=== PATIENT | female | born 1960 | race Caucasian/White ===

== ENCOUNTER → 2017-12-01 08:43 | Outpatient (CLI) | payer BC, SELFPAY ==
--- NOTE | 2017-12-01 08:48 | MM_ITS ---
MM Dig screening mamm BI w/CAD CAD Screening COMPARISON: Digital mammograms 11/10/2016 and 11/21/2015 from [place], [place]. INDICATION: There is no personal or family history of breast cancer TECHNIQUE: Standard CC and MLO images were obtained. R2 CAD reviewed. FINDINGS: Moderate diffuse fiber glandular densities are seen in central portions of both breast. There are few benign-appearing calcination is in each breast. There is no suspicious lesion and there are no suspicious microcalcifications. IMPRESSION: Fibrofatty parenchyma no suspicious lesion seen BI-RADS Category: 2 Benign Finding(s) RECOMMENDED FOLLOW-UP: 1YR - 1 YEAR FOLLOW-UP (A letter has been sent to the patient regarding results of the study.)
== END ==
PROVIDERS: PCP Family Medicine; Visit Provider Family Medicine
DX: Z12.31 Encounter for screening mammogram for malignant neoplasm of breast (principal)
CPT/HCPCS: 77067

== ENCOUNTER → 2019-02-10 09:15 | Outpatient (CLI) | payer BC, SELFPAY ==
--- NOTE | 2019-02-10 09:18 | MM_ITS ---
MM Dig screening mamm BI w/CAD CAD Screening INDICATION: Screening for breast cancer ORDERING PHYSICIAN: Scott Gunn PATIENT AGE: 58 years COMPARISON: None TECHNIQUE: Standard CC and MLO images were obtained. R2 CAD reviewed. FINDINGS: There is dense fibroglandular tissue. This does decrease the sensitivity of mammography. Scattered areas of asymmetry once again noted not significantly changed. Benign-appearing calcifications are present. IMPRESSION: None findings, no evidence of malignancy with no significant change BI-RADS Category: 2 Benign Finding(s) RECOMMENDED FOLLOW-UP: 1YR - 1 YEAR FOLLOW-UP (A letter has been sent to the patient regarding results of the study.)
== END ==
PROVIDERS: PCP Family Medicine; Visit Provider Family Medicine
DX: Z12.31 Encounter for screening mammogram for malignant neoplasm of breast (principal)
CPT/HCPCS: 77067

== ENCOUNTER → 2020-02-12 08:56 | Outpatient (CLI) | payer BC, SELFPAY ==
--- NOTE | 2020-02-12 08:58 | MM_ITS ---
PROCEDURE: MM DIG SCREENING MAMM BI W/CAD Digital Breast Tomosynthesis Included CLINICAL INDICATION: SCREENING There is no personal or family history of breast cancer. The patient currently is on estrogen. COMPARISON: MG MY Digital Screen BILAT from 11/10/2016 MG [facility] MM Dig screening mamm BI w/CAD from 12/01/2017 MG DIG MAMM-SCREEN CHIDI from 02/10/2019 TECHNIQUE: Standard CC and MLO images and 3D Tomosynthesis was obtained. R2 CAD reviewed. FINDINGS: Moderate diffuse fibroglandular densities are seen in the central portions of both breasts. There are few scattered benign-appearing microcalcifications in each breast. There is a possible developing asymmetric slightly suspicious density outer quadrant left breast. It is best appreciated on the CC jeaneth views. This could represent asymmetric glandular elements however recommend the patient return for spot compression MLO and CC views and ultrasound for additional evaluation. IMPRESSION: Moderate somewhat heterogenic breast density with possible developing lesion left breast BI-RAD Category: 0 Need Additional Imaging Evaluation FOLLOW-UP: IMM Immediate Follow-up Recommended (A letter has been sent to the patient regarding results of the study.) Dictated Dr. Kenton Ba MD 02/16/2020 10:04 Dr. Kenton Wilhelm MD in [place] 02/16/2020 10:04
== END ==
PROVIDERS: PCP Family Medicine; Visit Provider Family Medicine
DX: Z12.31 Encounter for screening mammogram for malignant neoplasm of breast (principal)
CPT/HCPCS: 77063; 77067

== ENCOUNTER → 2020-03-14 14:29 | Outpatient (CLI) | payer BC, SELFPAY ==
--- NOTE | 2020-03-14 14:31 | US_ITS ---
PROCEDURE: US BREAST LT COMPLETE CLINICAL INDICATION: ABN MAMM COMPARISON: No exams were available for comparison FINDINGS: Survey ultrasound images of the entire breast were obtained. There is no suspicious cystic or solid mass or evidence of architectural distortion in the area of interest seen on the previous and current mammogram. There is somewhat diffuse heterogenic echogenicity consistent with heterogenic appearing parenchymal pattern on the recent mammogram. There couple normal appearing nodes in the axilla IMPRESSION: Unremarkable ultrasound left breast Dictated by: Dr. Kenton Wilhelm MD 03/15/2020 13:19 Dr. Kenton Wilhelm MD in [place] 03/15/2020 13:19
--- NOTE | 2020-03-14 14:31 | MM_ITS ---
PROCEDURE: MM DIG MAMM DX UNILAT LT CAD Digital Breast Tomosynthesis Included CLINICAL INDICATION: ABN MAMM COMPARISON: MG [facility] MM Dig screening mamm BI w/CAD from 12/01/2017 MG DIG MAMM-SCREEN CHIDI from 02/10/2019 MG MM DIG SCREENING MAMM BI W/CAD from 02/12/2020 US US BREAST LT COMPLETE from 03/14/2020 TECHNIQUE: Standard CC and MLO images and 3D Tomosynthesis was obtained. R2 CAD reviewed. Spot compression MLO and CC views were obtained as well as 90 degree lateral view FINDINGS: The possible developing asymmetric density left breast appears to press out on the spot compression views. Ultrasound exam performed same date showed no abnormality at this location. There are no suspicious microcalcifications. IMPRESSION: Negative problem solving views, no persistent suspicious abnormality seen BI-RAD Category: 1 Negative FOLLOW-UP: 1YR 1 Year Follow-up (A letter has been sent to the patient regarding results of the study.) Dictated by: Dr. Kenton Wilhelm MD 03/15/2020 13:15 Dr. Kenton Wilhelm MD in [place] 03/15/2020 13:15
== END ==
PROVIDERS: PCP Family Medicine; Visit Provider Internal Medicine Adolescent Medicine
DX: R92.8 Other abnormal and inconclusive findings on diagnostic imaging of breast (principal)
CPT/HCPCS: 76641; 77061; 77065; G0279

== ENCOUNTER → 2020-11-12 09:24 | Outpatient (CLI) | payer BC, SELFPAY ==
[2020-11-12 09:57] LABS: Basophils # 0.1 K/mm3 (0-0.2); Basophils % 0.9 % (0.1-2.0); Eosinophils # 0.1 K/mm3 (0.0-0.4); Eosinophils % 2.4 % (0.1-12.0); Hemoglobin 13.3 g/dL (12.2-16.2); Lymphocytes # 1.8 K/mm3 (0.7-4.5); Lymphocytes % 35.5 % (10-50); Mean Corpuscular HGB Conc 34.2 g/dL (31.8-35.4); Mean Corpuscular Hemoglobin 28.7 pg (27.0-31.2); Mean Platelet Volume 7.7 fl (7.4-10.4); Monocytes # 0.3 K/mm3 (0.1-1.0); Monocytes % 4.9 % (1.7-9.3); Neutrophils # 2.8 K/mm3 (1.8-7.8); Neutrophils % 56.3 % (37.0-80.0); Platelet Count 304 K/mm3 (142-424); Red Blood Count 4.64 M/mm3 (4.20-5.40); Red Cell Distribution Width 13.3 % (11.5-17.5)
[2020-11-12 10:08] LABS: Hemoglobin A1C 5.7 % (4.0-6.0)
[2020-11-12 10:44] LABS: Alanine Aminotransferase 28 U/L (12-78); Albumin Level 4.9 g/dl (3.5-5.0); Albumin/Globulin Ratio 1.7 (1.1-1.8); Alkaline Phosphatase 82 U/L (38-126); Anion Gap 12.6 mEq/L (5-15); Aspartate Amino Transferase 37 U/L (14-36); Bilirubin,Total 0.6 mg/dl (0.2-1.3); Blood Urea Nitrogen 15 mg/dl (7-17); Calcium 10.2 mg/dl (8.4-10.2); Carbon Dioxide 25 mmol/L (22.0-30.0); Chloride 102 mmol/L (98-107); Cholesterol 228 mg/dl (140-200); Estimated Glomerular Filt Rate 73 ml/min (>60); GFR (African American) 88 ML/MIN (>60); Globulin 2.9 g/dL (1.3-3.2); Glucose 110 mg/dl (74-100); Potassium 5.6 mmoL/L (3.5-5.1); Sodium 134 mmol/L (136-145); Total Protein,Serum 7.8 g/dl (6.3-8.2); Triglycerides 63 mg/dl (30-150); VLDL Cholesterol 13 mg/dL (0-40)
[2020-11-12 10:53] LABS: Chol/HDL Ratio 1.9 (1-3.5); HDL Cholesterol 119 mg/dl (40-60)
[2020-11-12 10:54] LABS: Direct LDL Cholesterol 89.15 mg/dL (100-129)
== END ==
PROVIDERS: Visit Provider Nurse Practitioner Family
DX: Z00.00 Encounter for general adult medical examination without abnormal findings (principal); I10 Essential (primary) hypertension; R73.9 Hyperglycemia, unspecified
CPT/HCPCS: 36415; 80053; 80061; 83036; 85025

== ENCOUNTER → 2022-01-13 09:20 | Outpatient (CLI) | payer BC, SELFPAY ==
--- NOTE | 2022-01-13 09:24 | MM_ITS ---
PROCEDURE INFORMATION: Exam: MG Bilateral Screening 3D Mammography Exam date and time: 01/13/2022 9:36 AM Age: 61 years old Clinical indication: Screening mammogram TECHNIQUE: Imaging protocol: Bilateral Screening tomosynthesis and 2D mammography including computer-aided detection (CAD) when performed. COMPARISON: 1. MG MM DIG MAMM DX UNILAT LT CAD 03/14/2020 2:30 PM 2. MG MM DIG SCREENING MAMM BI W/CAD 02/12/2020 9:03 AM 3. MG MM DIG SCREENING MAMM BI W/CAD 02/10/2019 9:33 AM 4. MG [facility] MM Dig screening mamm BI w/CAD 12/01/2017 9:11 AM FINDINGS: MAMMOGRAPHY: Breast composition: The breast is heterogeneously dense, which may obscure small masses. Mass: None. Architectural distortion: No new or suspicious architectural distortion. Calcifications: Stable benign-appearing calcifications are present. No new or suspicious cluster of microcalcifications have developed. Asymmetric density: No new or suspicious asymmetric density is present Skin thickening: None. Axillary adenopathy: None. IMPRESSION: No mammographic evidence of malignancy. Recommend annual screening mammography unless otherwise clinically indicated. ASSESSMENT: BI-RADS category 2: Benign
--- NOTE | 2022-01-13 09:25 | XR_ITS ---
FINAL REPORT TECHNIQUE: Bone densitometry calculations of the lumbar spine and left hip were obtained. CLINICAL HISTORY: .screening, prior on pacs FINDINGS: DEXA BONE DENSITY AXIAL SKELETON Using L1-4, the bone mineral density of the spine is 0.969 g/cm2, corresponding to T-score of -0.7. Using the left hip, the bone mineral density of the femoral neck is 0.871 g/cm2, corresponding to a T-score of -0.6. NOTE: T-score: Standard deviation compared with peak bone mass of young adult mean. *Following the recommendations of the International Society of Bone densitometry, classification of hip BMD is based on the lower of two T-scores; total hip or femoral neck. IMPRESSION: Normal bone mineral density of the lumbar spine and left hip. Reviewed, Interpreted and Dictated by Karri Zimmer III, MD Transcribed by Pricilla Higgins Authenticated and [facility]
== END ==
PROVIDERS: PCP Family Medicine; Visit Provider Nurse Practitioner Family
DX: Z12.31 Encounter for screening mammogram for malignant neoplasm of breast (principal); Z78.0 Asymptomatic menopausal state
CPT/HCPCS: 77063; 77067; 77080

== ENCOUNTER 2023-09-07 08:12 | Outpatient (CLI) | payer MEDICARE, SELFPAY ==
--- NOTE | 2023-09-07 08:26 | MM_ITS ---
PROCEDURE INFORMATION: Exam: MG Bilateral Screening 3D Mammography Exam date and time: 09/07/2023 8:28 AM Age: 63 years old Clinical indication: Screening mammogram TECHNIQUE: Imaging protocol: Bilateral Screening tomosynthesis and 2D mammography including computer-aided detection (CAD) when performed. COMPARISON: 1. MG MM DIG SCREENING MAMM BI W/CAD 01/13/2022 9:36 AM 2. MG MM DIG MAMM DX UNILAT LT CAD 03/14/2020 2:30 PM 3. MG MM DIG SCREENING MAMM BI W/CAD 02/12/2020 9:03 AM 4. MG MM DIG SCREENING MAMM BI W/CAD 02/10/2019 9:33 AM FINDINGS: MAMMOGRAPHY: Breast composition: The breast is heterogeneously dense, which may obscure small masses. Mass: None. Architectural distortion: No new or suspicious architectural distortion. Calcifications: No new or suspicious calcifications are present Asymmetric density: No new or suspicious asymmetric density is present Skin thickening: None. Axillary adenopathy: None. IMPRESSION: No mammographic evidence of malignancy. Recommend annual screening mammography unless otherwise clinically indicated. ASSESSMENT: BI-RADS category 1: Negative
== END 2023-09-07 23:59 ==
LOC: RAD 08:12
PROVIDERS: PCP Nurse Practitioner Family; Visit Provider Nurse Practitioner Family
DX: Z12.31 Encounter for screening mammogram for malignant neoplasm of breast (principal)
CPT/HCPCS: 77063; 77067

== ENCOUNTER 2023-12-21 08:43 | Outpatient (CLI) | payer MEDICARE, SELFPAY ==
[2023-12-21 09:28] LABS: Basophils # 0.1 K/mm3 (0-0.2); Basophils % 1.1 % (0.1-2.0); Eosinophils # 0.1 K/mm3 (0.0-0.4); Eosinophils % 1.5 % (0.1-12.0); Hematocrit 40.2 % (37.0-47.0); Hemoglobin 13.6 g/dL (12.2-16.2); Lymphocytes # 1.8 K/mm3 (0.7-4.5); Lymphocytes % 29.7 % (10-50); Mean Corpuscular HGB Conc 33.8 g/dL (31.8-35.4); Mean Corpuscular Hemoglobin 30.7 pg (27.0-31.2); Mean Corpuscular Volume 90.6 fl (81-99); Mean Platelet Volume 7.6 fl (7.4-10.4); Monocytes # 0.3 K/mm3 (0.1-1.0); Monocytes % 4.4 % (1.7-9.3); Neutrophils # 3.7 K/mm3 (1.8-7.8); Neutrophils % 63.4 % (37.0-80.0); Platelet Count 264 K/mm3 (142-424); Red Blood Count 4.43 M/mm3 (4.20-5.40); Red Cell Distribution Width 13.8 % (11.5-17.5); White Blood Count 5.9 K/mm3 (4.8-10.8)
[2023-12-21 09:46] LABS: Chloride 101 mmol/L (98-107); Potassium 4.4 mmoL/L (3.5-5.1); Sodium 134 mmol/L (136-145)
[2023-12-21 09:49] LABS: Alanine Aminotransferase 31 U/L (12-78); Albumin Level 4.8 g/dl (3.5-5.0); Albumin/Globulin Ratio 1.7 (1.1-1.8); Alkaline Phosphatase 90 U/L (38-126); Anion Gap 14.4 mEq/L (5-15); Aspartate Amino Transferase 39 U/L (14-36); Bilirubin,Total 1.1 mg/dl (0.2-1.3); Blood Urea Nitrogen 18 mg/dl (7-17); Calcium 9.9 mg/dl (8.4-10.2); Carbon Dioxide 23 mmol/L (22.0-30.0); Cholesterol 247 mg/dl (140-200); Estimated Glomerular Filt Rate 72 ml/min (>60); GFR (African American) 87 ML/MIN (>60); Globulin 2.8 g/dL (1.3-3.2); Glucose 113 mg/dl (74-100); Total Protein,Serum 7.6 g/dl (6.3-8.2); Triglycerides 58 mg/dl (30-150); VLDL Cholesterol 12 mg/dL (0-40)
[2023-12-21 10:00] LABS: Direct LDL Cholesterol 91.58 mg/dL (100-129)
[2023-12-21 10:14] LABS: HDL Cholesterol 125 mg/dl (40-60)
[2023-12-21 10:52] LABS: Hemoglobin A1C 5.5 % (4.0-6.0)
== END 2023-12-21 23:59 | disposition home or self-care (01) ==
LOC: LAB 08:45
PROVIDERS: PCP Nurse Practitioner Family; Visit Provider Nurse Practitioner Family
DX: I10 Essential (primary) hypertension (principal); R73.01 Impaired fasting glucose
CPT/HCPCS: 36415; 80053; 80061; 83036; 85025

== ENCOUNTER 2024-12-25 08:08 | Outpatient (CLI) | payer MEDICARE, SELFPAY ==
[2024-12-25 08:47] LABS: Basophils # 0.1 K/mm3 (0-0.2); Basophils % 0.9 % (0.1-2.0); Eosinophils # 0.1 Kmm3 (0.0-0.4); Eosinophils % 1.8 % (0.1-12.0); Hematocrit 38.3 % (37.0-47.0); Hemoglobin 13.1 g/dL (12.2-16.2); Immature Granulocytes # 0.02 10^3uL; Immature Granulocytes % 0.4 %; Lymphocytes # 1.7 K/mm3 (0.7-4.5); Lymphocytes % 29.5 % (10-50); Mean Corpuscular HGB Conc 34.2 g/dL (31.8-35.4); Mean Corpuscular Hemoglobin 30.3 pg (27.0-31.2); Mean Corpuscular Volume 88.5 fl (81-99); Mean Platelet Volume 9.9 fl (7.4-10.4); Monocytes # 0.4 K/mm3 (0.1-1.0); Monocytes % 6.7 % (1.7-9.3); Neutrophils # 3.5 K/mm3 (1.8-7.8); Neutrophils % 60.7 % (37.0-80.0); Nucleated Red Blood Cells # 0 10^3/uL; Nucleated Red Blood Cells % 0 %; Platelet Count 259 K/mm3 (142-424); Red Blood Count 4.33 M/mm3 (4.20-5.40); Red Cell Distribution Width 12.5 % (11.5-17.5); Red Cell Distribution Width-SD 41.1 fL; White Blood Count 5.7 K/mm3 (4.8-10.8)
[2024-12-25 09:40] LABS: Albumin Level 4.8 g/dl (3.5-5.0); Chloride 103 mmol/L (98-107)
[2024-12-25 09:41] LABS: Potassium 5.5 mmoL/L (3.5-5.1); Sodium 135 mmol/L (136-145)
[2024-12-25 09:43] LABS: Alanine Aminotransferase 24 U/L (12-78); Albumin/Globulin Ratio 1.8 (1.1-1.8); Alkaline Phosphatase 73 U/L (38-126); Anion Gap 11.5 mEq/L (5-15); Aspartate Amino Transferase 33 U/L (14-36); Bilirubin,Total 0.9 mg/dl (0.2-1.3); Blood Urea Nitrogen 15 mg/dl (7-17); Carbon Dioxide 26 mmol/L (22.0-30.0); Cholesterol 251 mg/dl (140-200); Estimated Glomerular Filt Rate 72 ml/min (>60); GFR (African American) 87 ML/MIN (>60); Globulin 2.7 g/dL (1.3-3.2); Total Protein,Serum 7.5 g/dl (6.3-8.2); Triglycerides 66 mg/dl (30-150); VLDL Cholesterol 13 mg/dL (0-40)
[2024-12-25 09:44] LABS: Glucose 110 mg/dl (74-100)
[2024-12-25 09:53] LABS: HDL Cholesterol 127 mg/dl (40-60)
[2024-12-25 09:55] LABS: Direct LDL Cholesterol 85.45 mg/dL (100-129)
[2024-12-25 10:10] LABS: Hemoglobin A1C 5.5 % (4.0-6.0)
== END 2024-12-25 23:59 | disposition home or self-care (01) ==
LOC: LAB 08:10
PROVIDERS: PCP Nurse Practitioner Family; Visit Provider Nurse Practitioner Family
DX: Z00.00 Encounter for general adult medical examination without abnormal findings (principal); I10 Essential (primary) hypertension; R73.01 Impaired fasting glucose
CPT/HCPCS: 36415; 80053; 80061; 83036; 85025

== ENCOUNTER 2025-01-09 07:49 | Outpatient (CLI) | payer MEDICARE, SELFPAY ==
--- OUTSIDE RECORDS SUMMARY | 2025-01-09 07:51 | XMS_ITS ---
Author Organization Unknown Medications Medication Instructions Effective Dates (start - sto p) Status amlodipine 10 MG Oral Tablet 08-19-02:00:00.000+00:00 - Completed lisinopril 20 MG Oral Tablet 09-09-29:00:00.000+00:00 - Completed amlodipine 10 MG Oral Tablet 09-13-00:00:00.000+00:00 - Completed amlodipine 10 MG Oral Tablet 08-21-27:00:00.000+00:00 - Completed estradiol 0.5 MG Oral Tablet 08-19-02:00:00.000+00:00 - Completed lisinopril 20 MG Oral Tablet 08-21-28:00:00.000+00:00 - Completed amlodipine 10 MG Oral Tablet 09-09-29:00:00.000+00:00 - Completed 24 HR metoprolol succinate 5 0 MG Extended Release Oral Tablet [id number]:00:00.000+0 0:00 - Completed estradiol 0.5 MG Oral Tablet 09-14-07:00:00.000+00:00 - Completed lisinopril 20 MG Oral Tablet 08-19-02:00:00.000+00:00 - Completed 24 HR metoprolol succinate 5 0 MG Extended Release Oral Tablet [id number]:00:00.000+0 0:00 - Completed lisinopril 20 MG Oral Tablet 09-12-25:00:00.000+00:00 - Completed 24 HR metoprolol succinate 5 0 MG Extended Release Oral Tablet [id number]:00:00.000+0 0:00 - Completed 24 HR metoprolol succinate 5 0 MG Extended Release Oral Tablet [id number]:00:00.000+0 0:00 - Completed clindamycin 150 MG Oral Capsule [id number]:00:00.000+00:00 - Completed Patient Care team information Name Category Status Period Participants - - Proposed period not known -
--- NOTE | 2025-01-09 08:29 | MM_ITS ---
PROCEDURE INFORMATION: Exam: MG Bilateral Screening 3D Mammography Exam date and time: 01/09/2025 8:30 AM Age: 64 years old Clinical indication: Screening examination TECHNIQUE: Imaging protocol: Bilateral Screening tomosynthesis and 2D mammography including computer-aided detection (CAD) when performed. COMPARISON: 1. MG MM DIG SCREENING MAMM BI W/CAD 09/07/2023 8:28 AM 2. MG MM DIG SCREENING MAMM BI W/CAD 01/13/2022 9:36 AM FINDINGS: MAMMOGRAPHY: Breast composition: The breasts are extremely dense, which lowers the sensitivity of mammography. Mass: None. Architectural distortion: None. Calcifications: No suspicious calcifications. Asymmetric density: None. Skin thickening: None. Axillary adenopathy: None. IMPRESSION: No mammographic evidence of malignancy. Annual screening is recommended unless otherwise clinically indicated. ASSESSMENT: BI-RADS Category 1: Negative.
== END 2025-01-09 23:59 | disposition home or self-care (01) ==
LOC: RAD 07:49
PROVIDERS: PCP Nurse Practitioner Family; Visit Provider Nurse Practitioner Family
DX: Z12.31 Encounter for screening mammogram for malignant neoplasm of breast (principal); R92.333 Mammographic heterogeneous density, bilateral breasts
CPT/HCPCS: 77063; 77067